=== PATIENT | male | born 1980 | race Caucasian/White ===

== ENCOUNTER 2019-01-24 19:07 | Emergency (ER) | payer SELFPAY ==
[2019-01-24 19:46] VITALS: BMI 24.3
[2019-01-24 19:47] VITALS: RESP 18
[2019-01-24 22:11] LABS: BASO # 0.1 K/uL (0.0-0.2); BASO % 0.8 % (0.0-2.0); EOS # 0.3 K/uL (0.0-0.7); EOS % 3.9 % (0.0-4.0); HEMOGLOBIN 13.8 g/dL (12.0-18.0); LYMPH # 1.9 K/uL (1.0-4.3); LYMPH % 28.2 % (20.0-40.0); MEAN CELL VOLUME 91.3 fl (80.0-94.0); MEAN CORPUSCULAR HEMOGLOBIN 30.6 pg (27.0-31.0); MEAN CORPUSCULAR HGB CONC 33.5 g/dL (33.0-37.0); MEAN PLATELET VOLUME 7.1 fl (7.2-11.7); MONO # 0.5 K/uL (0.0-0.8); MONO % 8.1 % (0.0-10.0); RBC 4.49 Mil/uL (4.40-5.90); RED CELL DISTRIBUTION WIDTH 13.8 % (11.5-14.5); WHITE BLOOD COUNT 6.7 K/uL (4.8-10.8)
[2019-01-24 22:15] LABS: BENZODIAZEPINES, UR NEGATIVE (NEGATIVE)
[2019-01-24 22:20] LABS: BARBITURATES, UR NEGATIVE (NEGATIVE); OPIATES, UR NEGATIVE (NEGATIVE); PHENCYCLIDINE, UR NEGATIVE (NEGATIVE)
[2019-01-24 22:27] LABS: BLOOD UREA NITROGEN 19 mg/dl (9-20); CALCIUM 8.8 mg/dL (8.4-10.2); GFR NON-AFRICAN AMERICAN > 60
[2019-01-24 22:30] LABS: ACETAMINOPHEN < 10.0 ug/ml (10.0-30.0); SALICYLATE < 1.0 mg/dl
--- NOTE | 2019-01-24 22:38 | ED PDOC ---
HPI: Psych/Substance Abuse Time Seen by Provider: 01/24/19 20:00 Chief Complaint (Nursing): Substance Abuse Chief Complaint (Provider): Substance Abuse History Per: Patient History/Exam Limitations: no limitations Additional Complaint(s): Patient is a 38 year old male with a past medical history of bipolar disorder, HTN, HLD and drug abuse, who presents to the emergency department complaining of a possible drug relapse. 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 He states this is his first time relapsing since being clean that it has been on and off for the past x1 year. Patient states his last time using the drug was this morning. PMD: Dr. Moreno, [facility] Past Medical History Reviewed: Historical Data, Nursing Documentation, Vital Signs Vital Signs: Last Vital Signs Temp 98.5 F 01/24/19 19:46 Pulse 94 H 01/24/19 19:46 Resp 18 01/24/19 19:46 BP 141/85 01/24/19 19:46 Pulse Ox 100 01/24/19 19:46 - Medical History PMH: Bipolar Disorder, HTN, Hyperlipidemia - Surgical History Surgical History: No Surg Hx - Family History Family History: States: Unknown Family Hx - Social History Current smoker - smoking cessation education provided: No Alcohol: None Drugs: Denies - Allergies Allergies/Adverse Reactions: Allergies Allergy/AdvReac Type Severity Reaction Status Date / Time amoxicillin Allergy RASH Verified 01/24/19 19:49 Review of Systems ROS Statement: Except As Marked, All Systems Reviewed And Found Negative Constitutional: Positive for: Other (drug use). Negative for: Fever Psych: Negative for: Psychosis, Suicidal ideation (no homicidal ideation) Physical Exam - Reviewed Nursing Documentation Reviewed: Yes Vital Signs Reviewed: Yes - Physical Exam Appears: Positive for: Non-toxic, No Acute Distress Head Exam: Positive for: ATRAUMATIC, NORMOCEPHALIC Skin: Positive for: Normal Color, Warm, Dry Eye Exam: Positive for: Normal appearance, EOMI, PERRL ENT: Positive for: Normal ENT Inspection Neck: Positive for: Normal, Painless ROM, Supple Cardiovascular/Chest: Positive for: Regular Rate, Rhythm. Negative for: Murmur Respiratory: Positive for: Normal Breath Sounds. Negative for: Respiratory Distress Gastrointestinal/Abdominal: Positive for: Normal Exam, Soft. Negative for: Tenderness Back: Positive for: Normal Inspection. Negative for: L CVA Tenderness, R CVA Tenderness, Vertebral Tenderness Extremity: Positive for: Normal ROM. Negative for: Pedal Edema, Deformity Neurological/Psych: Positive for: Alert, Oriented - Laboratory Results Result Diagrams: 01/24/19 22:00 01/24/19 22:00 - ECG O2 Sat by Pulse Oximetry: 100 (RA) Pulse Ox Interpretation: Normal Medical Decision Making Medical Decision Making: Time: 2148 Plan: pt requesting detox. --Acetaminophen --Alcohol serum --BMP --Urine drug screen --CBC with differential --Salicylate Time: 2248 --Patient referred to crisis. Time: 2313 --Patient is stable for discharge after crisis evaluation. given detox referral. pt understands treatment options. vitals stable, pt dc home with family. Scribe Attestation: Documented by Bro Garces, acting as a scribe forCesario Ramirez MD. Provider Scribe Attestation: All medical record entries made by the Scribe were at my direction and personally dictated by me. I have reviewed the chart and agree that the record accurately reflects my personal performance of the history, physical exam, medical decision making, and the department course for this patient. I have also personally directed, reviewed, and agree with the discharge instructions and disposition Disposition - Clinical Impression Clinical Impression: Desire for detoxification - Patient ED Disposition Is Patient to be Admitted: No Counseled Patient/Family Regarding: Studies Performed, Diagnosis, Need For Followup - Disposition Disposition: Routine/Home Disposition Time: 23:00 Condition: IMPROVED Additional Instructions: follow up with outpatient detox as instructed return to the ED with any worsening or concerning symptoms Instructions: Drug Abuse Treatment Forms: [employer]) ([place])
[2019-01-24 23:26] VITALS: BP 143/83; PULSE 78; TEMP 98.4
[2019-01-25 02:00] VITALS: O2SAT 100
== END 2019-01-24 23:26 | disposition home or self-care (01) ==
LOC: H.ER 19:07
DX: Z71.51 Drug abuse counseling and surveillance of drug abuser (principal); E78.5 Hyperlipidemia, unspecified; F31.9 Bipolar disorder, unspecified; I10 Essential (primary) hypertension
CPT/HCPCS: 80048; 85025; 99283; G0480